=== PATIENT | male | born 1970 | race Caucasian/White ===

== ENCOUNTER 2017-12-15 10:51 | Emergency (ER) | payer OTHER ==
[~2017-12-15] VITALS: Ht 180.3 cm; Wt 86.2 kg
[2017-12-15] MEDS ORDERED: TRAMADOL 50 MG50 MG PO (15:02)
[2017-12-15] MEDS ORDERED: KEFLEX500 M1 PO (15:02)
[2017-12-15 15:16] VITALS: BP 108/73
--- NOTE | 2018-01-24 11:55 | CON ---
[address] [address] CONSULTATION Name: MERARY IBANEZ Room: [facility]#: [id number] Admission: 12/15/17 Attend Phys: Discharge: 12/15/17 Date of : 70 Report #: [id number] THIS REPORT FOR: //name// CC: Jacobo Duron DICTATED BY: Rojas Loza DO DATE OF SERVICE: 12/15/2017 CHIEF COMPLAINT: Right little finger open fracture. HISTORY OF PRESENT ILLNESS: This 47-year-old male presented to the Emergency Room this morning as he sustained an injury approximately 18 hours previously when he was playing softball. He was playing third base and a grounder was hit and he reached for it bare handed in which it hit his little finger. He had immediate bleeding. He did not appreciate the extent of his injury and kept it bandaged until today when he looked at it and states that it was worse than he thought and presented to the Emergency Room for repair. He had been given 1 g of Rocephin in the Emergency Room and had been given a digital block for pain control and Orthopedics was consulted for evaluation and repair. PAST MEDICAL HISTORY: The patient denies any prior medical problems. SURGICAL HISTORY: Denies any previous surgeries. He is up-to-date on immunizations. CURRENT MEDICATIONS: No home medications. ALLERGIES: No known drug allergies. SOCIAL HISTORY: The patient is , he has 4 children. He does IT rigging worker. REVIEW OF SYSTEMS: A 10-point review of systems was obtained, negative other than mentioned above. NEUROLOGIC: He admits to numbness and tingling in his right hand. SKIN: He has got a laceration on the medial and lateral aspect of his right fifth digit. PHYSICAL EXAMINATION: VITAL SIGNS: Blood pressure is 108/73, temperature of 36.9 degrees Celsius, pulse of 85, respirations of 15, pulse ox of 98 on room air. HEENT: Atraumatic, normocephalic. Eyes: Pupils equal, round, reactive to light. Extraocular muscles intact. Nose: [place] [address] CONSULTATION Name: SHAMARMERARY Room: [facility]#: [id number] Admission: 12/15/17 Attend Phys: Discharge: 12/15/17 Date of : 70 Report #: [id number] NECK: No JVD. No lymphadenopathy. CARDIOVASCULAR: Good equal pulses in bilateral upper extremities. LUNGS: Normal respiratory effort, no accessory muscles use. ABDOMEN: Soft, nontender, nondistended. NEUROLOGIC: Cranial nerves 2-12 grossly intact. No focal deficits. MUSCULOSKELETAL: The right fifth digit has an open distal phalanx fracture with visualization of the distal phalanx, laceration goes back to the level of the DIP. X-rays were reviewed. The patient has an open distal phalanx fracture of the right hand, little finger. IMPRESSION: Open distal phalanx fracture of the little finger of the right hand. RECOMMENDATIONS: Thorough irrigation and debridement of the open fracture with nail bed repair. He did receive a digital block by the PA in the Emergency Room. Please see procedure below for details of the procedure. PROCEDURE: Once a verbal consent was obtained, the patient was given an additional 10 mL of 1% lidocaine without epinephrine on the radial and ulnar aspect of the fifth digit of the right hand. The open fracture was soaked in sterile water Betadine solution. Next, the nail was removed from the proximal and distal areas of the fingertip. The wound was thoroughly irrigated and debrided with 1 L of saline. Next, using direct manipulation and pressure, the distal phalanx was reduced and the surrounding distal tip of his finger was sutured in place over the distal phalanx using a 4-0 Vicryl suture. This was done utilizing horizontal mattress sutures to pull the surrounding skin up over the distal phalanx. Next, the laceration that propagated proximal to the level of the DIP joint on the radial and ulnar aspect of the finger were sutured into place using Vicryl suture. Next, the nail was cleaned off and was placed into the nail fold. It was sutured in place with a 4-0 Prolene suture on the radial and ulnar proximal corners. The repair was found to be near anatomic. Xeroform, one 4 x 4 and a tube gauze was placed over the little finger. The patient was given an aluminum splint for protection. The patient was instructed on wound care, instructed to keep his dressing intact until followup. If he does get his dressings dirty or saturated or wet, he was given instructions on how to change them and given some Coban as well as gauze for bandage change. The patient will be discharged home with 5 days of Keflex as well as tramadol for pain control. Instructed to follow up in 2 [place] [address] CONSULTATION Name: MERARY IBANEZ [id number] Admission: 12/15/17 Attend Phys: Discharge: 12/15/17 Date of : 70 Report #: [id number] Thank you for the consultation and allowing us to take part in this patient's care. <ELECTRONICALLY SIGNED> By: Norman Hopkins DO 01/24/18 1155 [id number] Hopkins DO /luciano
== END 2017-12-15 15:15 | disposition home or self-care (01) ==
LOC: M.ERS 10:51
DX: S61.216A Laceration without foreign body of right little finger without damage to nail, initial encounter (principal); W21.07XA Struck by softball, initial encounter; Y93.89 Activity, other specified; Y92.89 Other specified places as the place of occurrence of the external cause; Y99.8 Other external cause status

== ENCOUNTER 2018-06-30 09:38 | Emergency (ER) | payer OTHER ==
[~2018-06-30] VITALS: Ht 180.3 cm; Wt 86.2 kg
[~2018-06-30 09:38] MED LIST: KEFLEX500 M1 PO; TRAMADOL 50 MG50 MG PO
[2018-06-30] MEDS ORDERED: PERCOCET 5-3251 EACH PO (13:02)
[2018-06-30] MEDS ORDERED: MOBIC7.5 MG PO (13:11)
[2018-06-30] MEDS ORDERED: KEFLEX500 M1 PO (13:11)
[2018-06-30 14:15] VITALS: BP 106/74
== END 2018-06-30 14:15 | disposition home or self-care (01) ==
LOC: M.ERS 09:38
DX: S52.501A Unspecified fracture of the lower end of right radius, initial encounter for closed fracture (principal); W20.8XXA Other cause of strike by thrown, projected or falling object, initial encounter; Y93.89 Activity, other specified; Y92.89 Other specified places as the place of occurrence of the external cause; Y99.8 Other external cause status